=== PATIENT | male | born 1930 ===

== ENCOUNTER 2019-01-26 10:32 | Emergency (ER) | payer MEDICARE, OTHER, BC ==
[2019-01-26 10:35] VITALS: BMI 27.4
[2019-01-26 10:36] VITALS: O2SAT 100
--- NOTE | 2019-01-26 12:39 | ED PDOC ---
HPI: Head Injury Time Seen by Provider: 01/26/19 10:39 Chief Complaint (Nursing): Abnormal Skin Integrity Chief Complaint (Provider): head History Per: Patient History/Exam Limitations: no limitations Injury Occurred (Timing): Just Before Arrival Onset/Duration Of Symptoms: Sudden Onset Patient States: Struck With Object Additional Complaint(s): 88 year old male with medical history of rheumatoid arthritis, arrives to the emergency department for an evaluation of a head injury. Patient states he was at a supermarket then bent forward to strip picker an item when a scale suddenly dropped on his head prior to arrival. He denies subsequent fall or loss of consciousness, however, noted some blood at the site of impact. At present, patient reports experiencing a headache but denies neck pain, other bodily injuries, nausea, vomiting, dizziness, or anticoagulant use. Additionally, he reports his tetanus is up-to-date. PCP: Dr. Maria De Jesus Cervantes Past Medical History Reviewed: Historical Data, Nursing Documentation, Vital Signs Vital Signs: Last Vital Signs Temp 97.6 F 01/26/19 10:35 Pulse 96 H 01/26/19 10:35 Resp 17 01/26/19 10:35 BP 150/82 01/26/19 10:35 Pulse Ox 100 01/26/19 10:35 - Medical History PMH: Rheumatoid Arthritis - Family History Family History: States: Unknown Family Hx - Immunization History Hx Tetanus Toxoid Vaccination: Yes - Allergies Allergies/Adverse Reactions: Allergies Allergy/AdvReac Type Severity Reaction Status Date / Time No Known Allergies Allergy Verified 01/26/19 11:23 Review of Systems ROS Statement: Except As Marked, All Systems Reviewed And Found Negative Gastrointestinal: Negative for: Nausea, Vomiting Musculoskeletal: Negative for: Neck Pain Neurological: Positive for: Headache. Negative for: Dizziness (or LOC) Physical Exam - Reviewed Nursing Documentation Reviewed: Yes Vital Signs Reviewed: Yes - Physical Exam Appears: Positive for: No Acute Distress Head Exam: Positive for: NORMOCEPHALIC (linear, very superficial abrasion to occipital scalp without laceration or active bleeding). Negative for: ATRAUMATIC Skin: Positive for: Normal Color Eye Exam: Positive for: Normal appearance, EOMI, PERRL ENT: Positive for: Normal ENT Inspection Neck: Positive for: Normal, Painless ROM, Supple. Negative for: Pain On Movement Of Neck (cervical spine tenderness) Cardiovascular/Chest: Positive for: Regular Rate, Rhythm Respiratory: Positive for: Normal Breath Sounds. Negative for: Respiratory Distress Neurological/Psych: Positive for: Awake, Alert, Oriented, Gait (steady and unassisted), field hauler II-XII (grossly intact) - ECG O2 Sat by Pulse Oximetry: 100 (RA) Pulse Ox Interpretation: Normal Medical Decision Making Medical Decision Making: Time: 1120 Initial Plan: * CT head Time: 1220 --Occipital scalp wound was cleaned and irrigated. --Patient tolerated procedure well, remains AAxO. Time: 1300 --CT head FINDINGS: HEMORRHAGE: No intracranial hemorrhage. BRAIN: Good corticomedullary differentiation is seen. Proportional, diffuse expansion of the ventriculosulcal and cisternal spaces is appreciated with white matter lucency compatible with diffuse cerebral atrophy and chronic microangiopathy. The pattern appears less than expected for the patient's stated age of 88 years. Bilateral dilated perivascular spaces are favored over chronic lacunes at the bilateral basal ganglia. No suspicious extra-axial fluid collection is identified and the midline brain anatomy appears grossly nonfocal as imaged. There is no mass effect throughout. VENTRICLES: Unremarkable. No hydrocephalus. CALVARIUM: No fracture identified. Mild atherosclerotic calcifications are appreciated associated with the bilateral cavernous internal carotid arteries bilaterally. PARANASAL SINUSES: Unremarkable as visualized. No significant inflammatory changes. MASTOID AIR CELLS: Unremarkable as visualized. No inflammatory changes. OTHER FINDINGS: None. IMPRESSION: Limited age-related neuro degenerative change are appreciate without definite acute intracranial findings. No fracture appreciable. Scribe Attestation: Documented by Lauren Noble, acting as a scribe for Davon Booth PA-C. Provider Scribe Attestation: All medical record entries made by the Scribe were at my direction and personally dictated by me. I have reviewed the chart and agree that the record accurately reflects my personal performance of the history, physical exam, medical decision making, and the department course for this patient. I have also personally directed, reviewed, and agree with the discharge instructions and disposition. Disposition - Clinical Impression Clinical Impression: Head injury - Patient ED Disposition Is Patient to be Admitted: No - Disposition Disposition: Routine/Home Disposition Time: 13:05 Condition: STABLE Additional Instructions: FOLLOW UP WITH YOUR DOCTOR FOR FURTHER EVALUATION RETURN TO ED IMMEDIATELY IF SYMPTOMS WORSEN [place]ON[place], thank you for letting us take care of you today. Your provider was Daina Us MD and you were treated for FALL:HEAD LACERATION. The [facility] medical care you received today was directed at your acute symptoms. If you were prescribed any medication, please fill it and take as directed. It may take several days for your symptoms to resolve. Return to the Emergency Department if your symptoms worsen, do not improve, or if you have any other problems. Please contact your doctor or call one of the physicians/clinics you have been referred to that are listed on the Patient Visit Information form that is included in your discharge packet. Bring any paperwork you were given at discharge with you along with any medications you are taking to your follow up visit. Our treatment cannot replace ongoing medical care by a primary care provider outside of the emergency department. Thank you for allowing the [facility] team to be part of your care today. If you had an X-Ray or CT scan: A Radiologist will review the ED reading if any change in treatment is needed we will contact you. If you had a blood, urine, or wound culture: It will take several days for the results, if any change in treatment is needed we will contact you. If you had an STI test: It will take 48 hours for the results. Please call after 1 week if you have not heard back. Instructions: Minor Head Injury (DC) Forms: Tailored Fit (Bengali) Print Language: BRAZILIAN
--- NOTE | 2019-01-26 13:05 | CT ---
Date of service: 01/26/2019 PROCEDURE: CT HEAD WITHOUT CONTRAST. HISTORY: trauma COMPARISON: None available. TECHNIQUE: Axial computed tomography images were obtained through the head/brain without intravenous contrast. Radiation dose: Total exam DLP = 860.7 mGy-cm. This CT exam was performed using one or more of the following dose reduction techniques: Automated exposure control, adjustment of the mA and/or kV according to patient size, and/or use of iterative reconstruction technique. FINDINGS: HEMORRHAGE: No intracranial hemorrhage. BRAIN: Good corticomedullary differentiation is seen. Proportional, diffuse expansion of the ventriculosulcal and cisternal spaces is appreciated with white matter lucency compatible with diffuse cerebral atrophy and chronic microangiopathy. The pattern appears less than expected for the patient's stated age of 88 years. Bilateral dilated perivascular spaces are favored over chronic lacunes at the bilateral basal ganglia. No suspicious extra-axial fluid collection is identified and the midline brain anatomy appears grossly nonfocal as imaged. There is no mass effect throughout. VENTRICLES: Unremarkable. No hydrocephalus. CALVARIUM: No fracture identified. Mild atherosclerotic calcifications are appreciated associated with the bilateral cavernous internal carotid arteries bilaterally. PARANASAL SINUSES: Unremarkable as visualized. No significant inflammatory changes. MASTOID AIR CELLS: Unremarkable as visualized. No inflammatory changes. OTHER FINDINGS: None. IMPRESSION: Limited age-related neuro degenerative change are appreciate without definite acute intracranial findings. No fracture appreciable.
[2019-01-26 13:38] VITALS: BP 134/74; PULSE 86; RESP 16; TEMP 98
== END 2019-01-26 14:11 | disposition home or self-care (01) ==
LOC: H.ER 10:32
DX: S09.90XA Unspecified injury of head, initial encounter (principal); W22.8XXA Striking against or struck by other objects, initial encounter; Y92.512 Supermarket, store or market as the place of occurrence of the external cause